=== PATIENT | female | born 1950 | race Caucasian/White ===

== ENCOUNTER 2018-06-26 12:05 | Emergency (ER) | payer MEDICARE, OTHER ==
[2018-06-26] MEDS ORDERED: Ondansetron 4 MG Tab.DIS PO ONE (13:10)
--- NOTE | 2018-06-26 13:12 | EDM.PDOC ---
ED HPI GENERAL MEDICAL PROBLEM - General Chief Complaint: Syncope Stated Complaint: SENT FROM [facility] Time Seen by Provider: 06/26/18 12:44 Source of Information: Reports: Patient History Limitations: Reports: No Limitations - History of Present Illness INITIAL COMMENTS - FREE TEXT/NARRATIVE: A rapid response was called to the outpatient laboratory this morning, after the patient had a syncopal episode while getting a blood draw. By the time we got there, the patient had woken up, but on examination, she was diaphoretic. Her SBP was in the 90s, and she felt to be somewhat bradycardic. She was given some apple juice, and I recommended that if she did not feel 100% after some rest, that she come to the ED. The patient did not in fact fully recover, still feeling lightheaded, therefore she came to the ED for evaluation. The patient states that she was getting a blood draw for an anemia workup. She states that she had had blood drawn about 2 weeks ago, then again about one week ago. She states that she was initially found to be anemic about 5 years ago , but that she has been healthy, and had not gone to the doctor much prior to that, so that it was possible that she has long-standing anemia that had gone undiagnosed. Here in the ED, the patient states that she has nausea, but otherwise feels fine. Her initial BP was 127/61 with a HR of 67. The patient's PCP is Ophelia Fernández. - Related Data Allergies Allergy/AdvReac Type Severity Reaction Status Date / Time Sulfa (Sulfonamide Allergy Hives Verified 06/26/18 12:12 Antibiotics) Past Medical History Gastrointestinal History: Reports: Hemorrhoids [employer] History: Reports: Hematologic History: Reports: Anemia - Infectious Disease History Infectious Disease History: Reports: Chicken Pox, Measles - Past Surgical History HEENT Surgical History: Reports: Cataract Surgery, Oral Surgery (wisdom teeth extraction) Female Surgical History: Reports: Section (x 3) Social & Family History - Family History Family Medical History: Noncontributory - Tobacco Use Smoking Status *Q: Never Smoker - Caffeine Use Caffeine Use: Reports: Coffee - Alcohol Use Alcohol Use History: Yes Alcohol Use Frequency: Rarely - Recreational Drug Use Recreational Drug Use: No - Living Situation & Occupation Living situation: Reports: , with Spouse Occupation: Employed (Self-employed) ED ROS GENERAL - Review of Systems Review Of Systems: ROS reveals no pertinent complaints other than HPI. - Physical Exam Exam: See Below Exam Limited By: No Limitations General Appearance: Alert, WD/WN, No Apparent Distress Eye Exam: Bilateral Eye: EOMI, Normal Inspection Ears: Normal External Exam, Hearing Grossly Normal Nose: Normal Inspection Throat/Mouth: Normal Inspection, Normal Lips, Normal Voice, No Airway Compromise Head Exam: Atraumatic, Normocephalic Neck: Normal Inspection, Full Range of Motion Respiratory/Chest: No Respiratory Distress, Lungs Clear, Normal Breath Sounds, No Accessory Muscle Use Cardiovascular: Normal Peripheral Pulses, Regular Rate, Rhythm, No Gallop, No JVD, No Murmur, No Rub GI/Abdominal: Normal Bowel Sounds, Soft, Non-Tender, No Organomegaly, No Distention, No Abnormal Bruit, No Mass (Female) Exam: Deferred Rectal (Female) Exam: Deferred Neuro Exam (Abbreviated): Alert, Oriented, Normal Cognition, No Motor/Sensory Deficits Back Exam: Normal Inspection, Full Range of Motion, NT Extremities: Normal Inspection, Normal Range of Motion, No Pedal Edema, Normal Capillary Refill Psychiatric: Normal Affect Skin Exam: Warm, Dry, Intact, Normal Color, No Rash EKG INTERPRETATION EKG Date: 06/26/18 Time: 12:08 Rhythm: NSR Rate (Beats/Min): 69 [place]: Normal P-Wave: Present QRS: Normal ST-T: Normal QT: Normal Comparison: NA - No Prior EKG Course - Vital Signs Last Recorded V/S: Last Vital Signs Temp 36.2 C 06/26/18 12:08 Pulse 67 06/26/18 12:08 Resp 16 06/26/18 12:08 BP 127/61 06/26/18 12:08 Pulse Ox 95 06/26/18 12:08 - Orders/Labs/Meds Orders: Active Orders 24 hr Category Date Time Status EKG Documentation Completion [RC] STAT Care 06/26/18 12:47 Active Meds: Medications Discontinued Medications Generic Name Dose Route Start Last Admin Trade Name Freq PRN Reason Stop Dose Admin Ondansetron HCl 4 mg 06/26/18 13:10 06/26/18 13:23 Zofran Odt PO 06/26/18 13:11 4 mg ONETIME ONE Administration - Re-Assessments/Exams Free Text/Narrative Re-Assessment/Exam: 06/26/18 13:10 The patient states that she is feeling much better, although she still has nausea. I have ordered 4 mg oral Zofran. Her most recent vitals are 124/61-74-13 -afeb-100% on RA. 06/26/18 13:58 The patient reports that both she and her received stem cells in [place] in September of this year. She states that her received it because his PSA is elevated, and that she received it "just because". She states that after that, they did some sort of whole body scan where they put something on her head , and she was later told that she had inflamed hemorrhoids "way up". I have reviewed the patient's recent lab work. Results from today's blood tests are not available. I see that the patient was not anemic on 05/17/2017, while she had a significant anemia with a H/H of 8.7/28.6 on 06/14/2018. Iron studies were unremarkable on 05/17/2017, but she had evidence of iron deficiency on 2017. A repeat hemogram was not performed on 06/21/2018, but a chemistry panel was, finding her BUN to be normal (which speaks against an upper GI bleed). Her haptoglobin was elevated at 256 on 06/21/2018, but her LDH was normal at 149, reducing the likelihood of hemolysis. The patient states that she had black/tarry stools about 2 months ago, but none since. She states that she provided a stool sample for analysis today. Because the patient was not anemic on 05/17/2017, she likely does not have a thalassemia. Her current workup speaks against anemia of chronic disease, as well. I suspect that the patient has a lower GI bleed. Whether or not the stool sample that she provided today is heme positive, the patient should undergo an EGD and colonoscopy. I suspect that the patient suffered a vasovagal reaction while getting her blood drawn today. I did not draw any additional blood work, as the blood draw itself appeared to be the precipitating factor. The patient appears to have fully recovered. I will discharge her home. Departure - Departure Time of Disposition: 14:10 Disposition: Home, Self-Care 01 Condition: Good Clinical Impression: Vasovagal syncope - Discharge Information *PRESCRIPTION DRUG MONITORING PROGRAM REVIEWED*: Not Applicable *COPY OF PRESCRIPTION DRUG MONITORING REPORT IN PATIENT JENI: Not Applicable Instructions: Vasovagal Syncope, Adult Referrals: Ophelia Fernández APPLE CHECKER [Primary Care Provider] - Forms: ED Department Discharge Additional Instructions: You were seen in the emergency room after passing out in the lab while getting your blood drawn. Workup in the ER included an ECG, was unremarkable. Based on your history, you most likely fainted, unrelated to your recent anemia. Stay well hydrated. Although the results from today's blood tests were not available, your recent lab tests were reviewed. Based on your history, it is most likely that your recent anemia is due to a GI bleed. We recommend that you undergo an EGD (scope of the stomach) and colonoscopy (scope from below). Follow-up with your PCP, Ophelia Fernández, to make arrangements for those procedures. If any other problems, please do not hesitate to return to the ER. - My Orders Last 24 Hours: My Active Orders 06/26/18 12:47 EKG Documentation Completion [RC] STAT - Assessment/Plan Last 24 Hours: My Active Orders 06/26/18 12:47 EKG Documentation Completion [RC] STAT
== END 2018-06-26 14:25 | disposition home or self-care (01) ==
LOC: JD.ED 12:05
DX: R55 Syncope and collapse (principal); Z88.2 Allergy status to sulfonamides
CPT/HCPCS: 93005; 99284; A9270; 93010

== ENCOUNTER 2021-12-20 14:54 | Emergency (ER) | payer MEDICARE, OTHER ==
[2021-12-20] MEDS ORDERED: Sodium Chloride 0.9% 10 ML Syringe FLUSH PRN (15:55)
[2021-12-20] MEDS ORDERED: Pantoprazole 40 MG Vial IVPUSH ONE (17:24)
[2021-12-20] MEDS ORDERED: Famotidine 20 MG/2 ML SDV IVPUSH ONE (17:24)
[2021-12-20] MEDS ORDERED: Ondansetron 4 MG/2 ML SDV IVPUSH ONE (22:45)
== END 2021-12-20 23:25 | disposition home or self-care (01) ==
LOC: JD.ED 14:54
DX: K92.1 Melena (principal); D64.9 Anemia, unspecified; Z88.2 Allergy status to sulfonamides; Z20.822 Contact with and (suspected) exposure to COVID-19
CPT/HCPCS: 36415; 36430; 80053; 83540; 83690; 85025; 86850; 86900; 86901; 86922; 93005; 96374; 96375; 99284; C9113; J2405; J3490; P9016; U0002